=== PATIENT | female | born 2000 | race Hispanic/Latino ===

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

== ENCOUNTER → 2020-10-19 | Outpatient (CLI) | payer SELFPAY ==
[~2020-10-19] MED LIST: ZOFR4TAB14 PO
== END ==
LOC: M LABSMTC 09:49
PROVIDERS: ATTEND Pediatrics
DX: Z20.828 Contact with and (suspected) exposure to other viral communicable diseases (principal)

== ENCOUNTER → 2020-11-29 | Outpatient (CLI) | payer SELFPAY | LOC: M LABSMTC 12:08 | PROVIDERS: ATTEND Pediatrics | DX: Z20.822 Contact with and (suspected) exposure to COVID-19 (principal) ==

== ENCOUNTER → 2021-11-04 | Outpatient (REF) | LOC: M LABSMTC 12:02 | PROVIDERS: ATTEND Pediatrics | DX: Z20.822 Contact with and (suspected) exposure to COVID-19 (principal) ==

== ENCOUNTER 2022-05-12 11:07 | Emergency (ER) | payer OTHER ==
[~2022-05-12] VITALS: Ht 162.6 cm; Wt 66.8 kg
[2022-05-12 11:08] VITALS: BP 135/77
[2022-05-12] MEDS ORDERED: VENL37.598 (11:26)
[2022-05-12] MEDS ORDERED: CEPH500C PO (12:39)
[2022-05-12] MEDS ORDERED: CEPHALEXIN 500 MG CAP PO ONE (12:40)
== END 2022-05-12 12:56 | disposition home or self-care (01) ==
LOC: M ED 11:07
DX: H92.02 Otalgia, left ear (principal); H60.12 Cellulitis of left external ear; Z79.899 Other long term (current) drug therapy

== ENCOUNTER → 2024-06-20 | Outpatient (REF) ==
[~2024-06-20] MED LIST changes: +CEPH500C PO; +VENL37.598
== END ==
LOC: M EMP 11:16
PROVIDERS: ATTEND Family Medicine
DX: Z20.822 Contact with and (suspected) exposure to COVID-19 (principal)